=== PATIENT | female | born 1980 | race Caucasian/White ===

== ENCOUNTER 2018-06-03 19:59 | Emergency (ER) | payer OTHER ==
[2018-06-03 20:05] VITALS: RESP 18
[2018-06-03 20:39] VITALS: TEMP 97.8
[2018-06-03] MEDS ORDERED: CLINDAMYCIN 150 MG CAP PO STA (20:43)
[2018-06-03] MEDS ORDERED: LIDOCAINE 1% INJ 10MG/ML (20 ML MDV) SQ ONE (20:44)
[2018-06-03] MEDS ORDERED: ACET/COD 300 MG/30 MG STARTER PACK 6 TAB BTL PO STA (20:44)
--- NOTE | 2018-06-03 20:46 | ED ---
Skin/Abscess/FB HPI - General Chief complaint: Skin/Abscess/Foreign Body Stated complaint: facial swelling/abscess Time Seen by Provider: 06/03/18 20:37 Source: patient Mode of arrival: ambulatory Limitations: no limitations - History of Present Illness Initial comments: 38-year-old female patient presents to the emergency department today for evaluation of right facial swelling and pain. Patient states that a couple of days ago she developed a pimple to the right lower cheek, states that over the next couple of days it started to swell and become larger. Patient states that she applied warm compresses but is seems to be worsening. Patient states she did have some chills earlier today. Patient denies any dental pain, trismus, or difficulty swelling. Denies any document and fevers. Denies any nausea or vomiting. Patient denies any recent rash, shortness breath, chest pain, abdominal pain, nausea, vomiting, diarrhea, constipation, back pain, numbness, tingling, dizziness, weakness, hematuria, dysuria, urinary urgency, urinary frequency, headache, visual changes, or any other complaints. - Related Data Home Medications Medication Instructions Recorded Confirmed Ibuprofen [Motrin] 800 mg PO TID PRN 06/03/18 06/03/18 Previous Rx's Medication Instructions Recorded Acetaminophen-Codeine 300-30mg 1 tab PO Q6H PRN #12 tablet 06/03/18 [Tylenol #3] Clindamycin HCl 300 mg PO Q6H #40 cap 06/03/18 Allergies Allergy/AdvReac Type Severity Reaction Status Date / Time diphenhydramine HCl Allergy Rash/Hives Verified 06/03/18 20:09 [From Benadryl] Penicillins Allergy Rash/Hives Verified 06/03/18 20:09 Sulfa (Sulfonamide Allergy Unknown Verified 06/03/18 20:09 Antibiotics) Review of Systems ROS Statement: Those systems with pertinent positive or pertinent negative responses have been documented in the HPI. ROS Other: All systems not noted in ROS Statement are negative. Past Medical History Past Medical History: No Reported History History of Any Multi-Drug Resistant Organisms: None Reported Additional Past Surgical History / Comment(s): cyst removed from right bottom jaw Past Psychological History: No Psychological Hx Reported Smoking Status: Current every day smoker Past Alcohol Use History: None Reported Past Drug Use History: None Reported General Exam Limitations: no limitations General appearance: alert, in no apparent distress, other (This is a well- developed, well-nourished adult female patient in no acute distress. Vital signs upon presentation are temperature 97.8F, pulse 79, respirations 18, blood pressure 132/65, pulse ox 100% on room air.) Eye exam: Present: normal appearance, PERRL, EOMI. Absent: scleral icterus, conjunctival injection, periorbital swelling ENT exam: Present: normal exam, normal oropharynx, mucous membranes moist, other (Patient has right lower cheek swelling. Does not cross the mandibular line. Patient has no intraoral swelling or presence of abscess.) Respiratory exam: Present: normal lung sounds bilaterally. Absent: respiratory distress, wheezes, rales, rhonchi, stridor Cardiovascular Exam: Present: regular rate, normal rhythm, normal heart sounds. Absent: systolic murmur, diastolic murmur, rubs, gallop, clicks GI/Abdominal exam: Present: soft, normal bowel sounds. Absent: distended, tenderness, guarding, rebound, rigid Neurological exam: Present: alert, oriented X3, CN II-XII intact Psychiatric exam: Present: normal affect, normal mood Skin exam: Present: warm, dry, intact, normal color. Absent: rash Course Vital Signs 06/03/18 06/03/18 20:02 21:07 Temperature 97.8 F Pulse Rate 79 68 Respiratory 18 18 Rate Blood Pressure 132/65 123/62 O2 Sat by Pulse 100 98 Oximetry Procedures - Incision & Drainage Indication: Abscess Size (cm): 3 Anesthetic Used: lidocaine 1% Amount (mLs): 1 I&D Cleaning Method: Betadine Sterile Field Used?: No Needle Aspiration Performed?: Yes Irrigation Performed?: No I&D Drainage Obtained: Pus, Blood Culture Obtained?: Yes Patient Tolerated Procedure: well Medical Decision Making - Medical Decision Making 38-year-old female patient presents to the emergency department today for evaluation of abscess to the right face. Physical examination did reveal a 3 cm abscess with surrounding erythema noted to the right face, area was indurated with very little fluctuance. Patient requested drainage of the area. I did perform needle puncture, did get a small amount of pus and blood. Not much was expressed we did obtain culture. Patient was started on clindamycin given her ALLERGIES. She is instructed to follow-up with her primary care physician for recheck in 1-2 days. Return parameters were discussed in detail. She verbalizes understanding and agrees with this plan. Disposition Clinical Impression: Facial abscess Disposition: HOME SELF-CARE Condition: Good Instructions: Abscess Incision and Drainage (ED), Abscess (ED) Additional Instructions: Apply warm moist compresses to the right side of the face at least 20 minutes at a time 4-5 times daily. Complete antibiotic prescription in full. Follow- up with your primary care physician for recheck of the area in 1-2 days. Return here immediately for any new, worsening, or concerning symptoms. Prescriptions: Acetaminophen-Codeine 300-30mg [Tylenol #3] 1 tab PO Q6H PRN #12 tablet PRN Reason: Pain Clindamycin HCl 300 mg PO Q6H #40 cap Is patient prescribed a controlled substance at d/c from ED?: Yes When asked, does pt state using other controlled substances?: No If prescribed controlled substance>3 days was MAPS reviewed?: Prescribed <3 Days If opioid is for acute pain is fill amount 7 days or less?: Yes If Rx opioid, was Start Talking consent form obtained?: Yes Referrals: Milan Harrison DO [Primary Care Provider] - 1-2 days Time of Disposition: 21:07
[2018-06-03 21:07] VITALS: BP 123/62; PULSE 68
== END 2018-06-03 21:29 | disposition home or self-care (01) ==
LOC: EC 19:59
DX: L02.01 Cutaneous abscess of face (principal); F17.200 Nicotine dependence, unspecified, uncomplicated; Z88.0 Allergy status to penicillin; Z88.2 Allergy status to sulfonamides; Z88.8 Allergy status to other drugs, medicaments and biological substances
CPT/HCPCS: 87070; 87205; 99283; 10060; J2001

== ENCOUNTER 2019-03-28 22:09 | Emergency (ER) | payer OTHER ==
[2019-03-28 22:28] VITALS: BP 128/74; PULSE 71; RESP 18; TEMP 98.4
[2019-03-28] MEDS ORDERED: KETOROLAC 60 MG/2 ML VIAL IM STA (22:46)
--- NOTE | 2019-03-28 22:54 | ED ---
ENT HPI - General Chief complaint: Dental/Oral Stated complaint: Dental pain Time Seen by Provider: 03/28/19 22:30 Source: patient Mode of arrival: ambulatory Limitations: no limitations - History of Present Illness Initial comments: Patient is a 39-year-old female presenting to emergency Department with complaints of right-sided dental pain 3 days. Patient states she is unable to eat due to the pain. Patient states she's been trying to get into a dentist and does not have an appointment for at least 2 weeks. Patient denies having fevers, chills, swelling. Patient denies any other complaints at this time. - Related Data Home Medications Medication Instructions Recorded Confirmed Ibuprofen [Motrin] 800 mg PO TID PRN 06/03/18 06/03/18 Previous Rx's Medication Instructions Recorded Acetaminophen-Codeine 300-30mg 1 tab PO Q6H PRN #12 tablet 06/03/18 [Tylenol #3] Clindamycin HCl 300 mg PO Q6H #40 cap 06/03/18 Clindamycin HCl 300 mg PO Q6HR 10 Days #40 cap 03/28/19 Ketorolac [Toradol] 10 mg PO Q8HR #15 tab 03/28/19 Allergies Allergy/AdvReac Type Severity Reaction Status Date / Time diphenhydramine HCl Allergy Rash/Hives Verified 03/28/19 22:28 [From Benadryl] Penicillins Allergy Rash/Hives Verified 03/28/19 22:28 Sulfa (Sulfonamide Allergy Unknown Verified 03/28/19 22:28 Antibiotics) Review of Systems ROS Statement: Those systems with pertinent positive or pertinent negative responses have been documented in the HPI. ROS Other: All systems not noted in ROS Statement are negative. Past Medical History Past Medical History: No Reported History History of Any Multi-Drug Resistant Organisms: None Reported Additional Past Surgical History / Comment(s): cyst removed from right bottom jaw Past Psychological History: No Psychological Hx Reported Smoking Status: Current every day smoker Past Alcohol Use History: None Reported Past Drug Use History: None Reported General Exam - General Exam Comments Initial Comments: GENERAL: Well-appearing, well-nourished and in no acute distress. HEAD: Atraumatic, normocephalic. EYES: Pupils equal round and reactive to light, extraocular movements intact, sclera anicteric, conjunctiva are normal. ENT: TMs normal, nares patent, oropharynx clear without exudates. Moist mucous membranes. Patient has a severely decayed tooth on the upper right side, back molar. Patient has swelling, pain, and erythema of the gumline. There is no fluctuant area palpated. NECK: Normal range of motion, supple without lymphadenopathy or JVD. LUNGS: Breath sounds clear to auscultation bilaterally and equal. No wheezes rales or rhonchi. HEART: Regular rate and rhythm without murmurs, rubs or gallops. ABDOMEN: Soft, nontender, normoactive bowel sounds. No guarding, no rebound. No masses appreciated. : Deferred EXTREMITIES: Normal range of motion, no pitting or edema. No clubbing or cyanosis. NEUROLOGICAL: Cranial nerves II through XII grossly intact. Normal speech, normal gait. PSYCH: Normal mood, normal affect. SKIN: Warm, Dry, normal turgor, no rashes or lesions noted. Limitations: no limitations Course Vital Signs 03/28/19 22:27 Temperature 98.4 F Pulse Rate 71 Respiratory 18 Rate Blood Pressure 128/74 O2 Sat by Pulse 100 Oximetry Medical Decision Making - Medical Decision Making Patient is a 39-year-old female presenting with right-sided dental pain 3 days. Patient is afebrile. Patient has severely decayed upper right sided molars with surrounding erythema and pain with palpation. No fluctuant areas can be felt. Patient will be started on clindamycin and will follow up with dentist as soon as possible. Patient was given Toradol for pain. Vitals are stable. Patient was discharged home. Patient is okay with this plan. Disposition Clinical Impression: Dental abscess, Dental caries Disposition: HOME SELF-CARE Condition: Stable Instructions (If sedation given, give patient instructions): Dental Caries (ED), Toothache (ED) Additional Instructions: Please return to the Emergency Department if symptoms worsen or any other concerns. Follow-up with dentist [facility]. Prescriptions: Clindamycin HCl 300 mg PO Q6HR 10 Days #40 cap Ketorolac [Toradol] 10 mg PO Q8HR #15 tab Is patient prescribed a controlled substance at d/c from ED?: No Referrals: None,Stated [Primary Care Provider] - 1-2 days
== END 2019-03-28 22:59 | disposition home or self-care (01) ==
LOC: EC 22:09
DX: K04.7 Periapical abscess without sinus (principal); K02.9 Dental caries, unspecified; F17.200 Nicotine dependence, unspecified, uncomplicated; Z88.0 Allergy status to penicillin; Z88.2 Allergy status to sulfonamides; Z88.8 Allergy status to other drugs, medicaments and biological substances
CPT/HCPCS: 99282; 96372; J1885

== ENCOUNTER 2023-05-27 02:14 | Emergency (ER) | payer OTHER ==
[2023-05-27 02:20] VITALS: BP 145/95; PULSE 76; RESP 18; TEMP 98.1
[2023-05-27] MEDS ORDERED: IBUPROFEN 800 MG TAB PO STA (02:42)
[2023-05-27] MEDS ORDERED: CLINDAMYCIN 150 MG CAP PO STA (02:43)
--- NOTE | 2023-05-27 02:45 | ED ---
General Adult HPI - General Chief complaint: Skin/Abscess/Foreign Body Stated complaint: Abscess/infection on face Time Seen by Provider: 05/27/23 02:22 Source: patient Mode of arrival: ambulatory Limitations: no limitations - History of Present Illness Initial comments: This is a 43-year-old female with a past medical history presents emergency department for pain and swelling of the left side her face. The patient stated that she noted that she had a bump there for several months but stated that over the last 3 days noted that she had pain. The patient did try to express some drainage from the area and only got a small amount of "yellow stuff" and then continue to have worsening pain and swelling. The patient stated that she had continued swelling and pain so she came to the emergency department. The patient denied any fevers and chills. The patient was otherwise resting in bed comfortably. - Related Data Previous Rx's Medication Instructions Recorded oxyCODONE HCL [OxyIR] 5 mg PO Q6H PRN 3 Days #6 tab 12/01/22 Clindamycin [Cleocin] 450 mg PO TID #63 cap 05/27/23 Ibuprofen [Motrin] 800 mg PO Q8H #30 tab 05/27/23 Allergies Allergy/AdvReac Type Severity Reaction Status Date / Time diphenhydramine HCl Allergy Rash/Hives Verified 11/30/22 14:33 [From Benadryl] Penicillins Allergy Rash/Hives Verified 11/30/22 14:33 - whole body Sulfa (Sulfonamide Allergy Unknown Verified 11/30/22 14:33 Antibiotics) Review of Systems ROS Statement: Those systems with pertinent positive or pertinent negative responses have been documented in the HPI. ROS Other: All systems not noted in ROS Statement are negative. Past Medical History Past Medical History: No Reported History History of Any Multi-Drug Resistant Organisms: None Reported Past Surgical History: Cholecystectomy Additional Past Surgical History / Comment(s): cyst removed from right bottom jaw Past Psychological History: No Psychological Hx Reported Smoking Status: Current every day smoker Past Alcohol Use History: None Reported Past Drug Use History: None Reported General Exam Limitations: no limitations General appearance: alert, in no apparent distress Head exam: Present: atraumatic, normocephalic, normal inspection Eye exam: Present: normal appearance, PERRL Pupils: Present: normal accommodation ENT exam: Present: normal exam, normal oropharynx, mucous membranes moist Neck exam: Present: full ROM Respiratory exam: Present: normal lung sounds bilaterally Cardiovascular Exam: Present: regular rate, normal rhythm, normal heart sounds GI/Abdominal exam: Present: soft, normal bowel sounds Extremities exam: Present: normal inspection, full ROM Back exam: Present: normal inspection, full ROM Neurological exam: Present: alert, oriented X3, CN II-XII intact Psychiatric exam: Present: normal affect, normal mood Skin exam: Present: warm, dry, other (Minor swelling noted to the left side of the face over the cheek with no fluctuance noted. There was tenderness of patient without erythema.) Course Vital Signs 05/27/23 02:18 Temperature 98.1 F Pulse Rate 76 Respiratory 18 Rate Blood Pressure 145/95 O2 Sat by Pulse 98 Oximetry Medical Decision Making - Medical Decision Making Was pt. sent in by a medical professional or institution ([facility], [employer], urgent care, hospital, or jail...) When possible be specific @ -No Did you speak to anyone other than the patient for history (EMS, parent, family, police, friend...)? What history was obtained from this source @ -No Did you review nursing and triage notes (agree or disagree)? Why? @ -I reviewed and agree with nursing and triage notes Were old charts reviewed (outside hosp., previous admission, EMS record, old EKG, old radiological studies, urgent care reports/EKG's, jail records)? Report findings @ -No old charts were reviewed Differential Diagnosis (chest pain, altered mental status, abdominal pain women, abdominal pain men, vaginal bleeding, weakness, fever, dyspnea, syncope, headache, dizziness, GI bleed, back pain, seizure, CVA, palpatations, mental health)? @ -Facial abscess, facial cellulitis, cyst EKG interpreted by me (3pts min.). @ -None X-rays interpreted by me (1pt min.). @ -None done CT interpreted by me (1pt min.). @ -None done U/S interpreted by me (1pt. min.). @ -A bedside ultrasound was performed by myself and interpreted by myself showing cellulitis over the the area without any abscess noted. What testing was considered but not performed or refused? (CT, X-rays, U/S, labs)? Why? @ -None What meds were considered but not given or refused? Why? @ -None Did you discuss the management of the patient with other professionals (professionals i.e. , PA, [employer], lab, RT, psych nurse, social security benefits interviewer, neurosurgery spine physician, teacher, chief security and safety officer, corrections caseworker)? Give summary @ -No Was smoking cessation discussed for >3mins.? @ -No Was critical care preformed (if so, how long)? @ -No Were there social determinants of health that impacted care today? How? (Homelessness, low income, unemployed, alcoholism, drug addiction, transportation, low edu. Level, literacy, decrease access to med. care, snf, rehab)? @ -No Was there de-escalation of care discussed even if they declined (Discuss DNR or withdrawal of care, Hospice)? DNR status @ -No What co-morbidities impacted this encounter? (DM, HTN, Smoking, COPD, CAD, Cancer, CVA, ARF, Chemo, Hep., AIDS, mental health diagnosis, sleep apnea, morbid obesity)? @ -None Was patient admitted / discharged? Hospital course, mention meds given and route, prescriptions, significant lab abnormalities, going to OR and other pertinent info. @ -The patient was seen and evaluated in emergency department. Physical exam, the patient was resting in bed without any acute distress. Vital signs admission were stable. Due to the nature the patient's complaints and the bedside ultrasound performed by myself, the patient likely had facial cellulitis and was given a dose of clindamycin and Motrin in the emergency department. The patient requested clindamycin as she stated that is the only medication that works it does not upset her stomach and cause her have a yeast infection. The patient was given a prescription for Motrin and clindamycin be taken at home and told to continue to take these medications as prescribed. The patient was agreeable to this and all of her questions were answered appropriately. The patient was discharged home in stable condition. Undiagnosed new problem with uncertain prognosis? @ -No Drug Therapy requiring intensive monitoring for toxicity (Heparin, Nitro, Insulin, Cardizem)? @ -No Were any procedures done? @ -No Diagnosis/symptom? @ -Left facial cellulitis Acute, or Chronic, or Acute on Chronic? @ -Acute on chronic Uncomplicated (without systemic symptoms) or Complicated (systemic symptoms)? @ -Uncomplicated Side effects of treatment? @ -No Exacerbation, Progression, or Severe Exacerbation? @ -No Poses a threat to life or bodily function? How? (Chest pain, [place], [place], pneumonia, PE, COPD, DKA, ARF, appy, cholecystitis, CVA, Diverticulitis, Homicidal, Suicidal, threat to staff... and all critical care pts) @ -No Disposition Clinical Impression: Facial cellulitis Disposition: HOME SELF-CARE Condition: Stable Instructions (If sedation given, give patient instructions): Cellulitis (ED) Prescriptions: Clindamycin [Cleocin] 450 mg PO TID #63 cap Ibuprofen [Motrin] 800 mg PO Q8H #30 tab Is patient prescribed a controlled substance at d/c from ED?: No Referrals: None,Stated [Primary Care Provider] - 1-2 days Time of Disposition: 02:30
== END 2023-05-27 02:52 | disposition home or self-care (01) ==
LOC: EC 02:14
DX: L03.211 Cellulitis of face (principal); F17.200 Nicotine dependence, unspecified, uncomplicated; Z88.0 Allergy status to penicillin; Z88.2 Allergy status to sulfonamides; Z88.8 Allergy status to other drugs, medicaments and biological substances
CPT/HCPCS: 99282; 99283